=== PATIENT | male | born 1985 | race Caucasian/White ===

== ENCOUNTER 2021-09-03 19:13 | Emergency (ER) | payer MEDICARE, MEDICAID, SELFPAY | END 2021-09-04 17:03 | disposition left against medical advice (07) | PROVIDERS: Emergency Provider Emergency Medicine | DX: R10.9 Unspecified abdominal pain (principal) ==

== ENCOUNTER 2021-09-04 16:11 | Emergency (ER) | payer MEDICARE, MEDICAID, SELFPAY ==
[2021-09-04 17:03] VITALS: BP 127/77; PULSE 63; RESP 16; TEMP 36.3; O2SAT 97; BMI 33.9
== END 2021-09-04 20:04 | disposition left against medical advice (07) ==
LOC: HO.ED 19:58
PROVIDERS: Emergency Provider Emergency Medicine
DX: R11.10 Vomiting, unspecified (principal)
CPT/HCPCS: 99281

== ENCOUNTER 2022-08-21 02:57 | Emergency (ER) | payer MEDICARE, MEDICAID, SELFPAY ==
--- NOTE | 2022-08-21 02:59 | ECG_ITS ---
Test Reason : chest pain Blood Pressure : / mmHG Vent. Rate : 097 BPM Atrial Rate : 097 BPM P-R Int : 136 ms QRS Dur : 092 ms QT Int : 352 ms P-R-T Axes : 033 -09 037 degrees QTc Int : 447 ms Normal sinus rhythm Normal ECG No previous ECGs available Referred By: Generic ED Physician Electronically Signed By:OANH MORRIS MD
[2022-08-21 03:11] VITALS: BP 182/87; PULSE 117; RESP 16; TEMP 36.7; O2SAT 100; BMI 33.2
--- NOTE | 2022-08-21 03:34 | PC.NURSE ---
Pt seen walking out of ER. Charge nurse and MD aware.
== END 2022-08-21 03:39 | disposition left against medical advice (07) ==
PROVIDERS: Emergency Provider Emergency Medicine
DX: R07.89 Other chest pain (principal); F41.9 Anxiety disorder, unspecified
CPT/HCPCS: 93005; 99283

== ENCOUNTER 2023-04-14 18:37 | Emergency (ER) | payer MEDICARE, MEDICAID, SELFPAY ==
--- NOTE | ~2023-04-14 | XR_ITS ---
EXAMINATION: XR CHEST CLINICAL INFORMATION: Chest pain. COMPARISON: None available. TECHNIQUE: 2 views of the chest were obtained. FINDINGS: No lung volume and bilateral diffuse prominent interstitial lung markings are noted, may represent chronic changes. No evidence of any superimposed discrete focal airspace consolidation/pneumonia or pleural effusion or pneumothorax. The cardiomediastinal silhouette is within normal limit. The visualized upper abdomen is unremarkable. XR/XR chest 2V IMPRESSION: No radiographic evidence of acute cardiopulmonary disease. The etiology for chest pain is not evident on these images.
--- NOTE | 2023-04-14 18:38 | ECG_ITS ---
Test Reason : CHEST PAIN Blood Pressure : / mmHG Vent. Rate : 114 BPM Atrial Rate : 114 BPM P-R Int : 168 ms QRS Dur : 094 ms QT Int : 334 ms P-R-T Axes : 045 004 015 degrees QTc Int : 460 ms Sinus tachycardia Otherwise normal ECG When compared with ECG of 21-AUG-2022 02:58, No significant change was found Referred By: Kait Batista Electronically Signed By:NORMAN GARCIA
[2023-04-14 18:44] VITALS: BP 158/87; PULSE 111; RESP 18; TEMP 36.7; O2SAT 99; BMI 35.8
--- NOTE | 2023-04-14 18:48 | ED.CHESTPAIN ---
HPI - Chest Pain General Chief Complaint: Chest Pain Stated Complaint: chest pain,left arm numbness,palpatations Related Data Allergies Allergy/AdvReac Type Severity Reaction Status Date / Time haloperidol [From Haldol] Allergy Unknown Verified 08/21/22 03:10 [facility] Social History Social History Advance Directives: No Advance Directives Information Provided: No Physical Exam Vital Signs: Vital Signs: Last Vital Signs Temp 98.1 F 04/14/23 18:44 Pulse 111 H 04/14/23 18:44 Resp 18 04/14/23 18:44 BP 158/87 H 04/14/23 18:44 Pulse Ox 99 04/14/23 18:44 O2 Del Method Room Air 04/14/23 18:44 BMI result Body Mass Index 35.8 Course Course Course Narrative: RME: 37 yo M w/PMHx vertigo, HTN, insomnia, presenting to the ED c/o chest pain, nausea, SOB & anxiety w/ assoc LUE tingling x 20mins [employer]. Also reports ear ringing & acute on chronic dizziness (known vertigo). Took Xanax [employer] w/o relief. EKG, Labs, CXR, Viral testing ordered Full HPI, ROS and PE to be performed by primary ED provider. Discharge Plan Discharge Clinical Impression: Chest pain Patient Disposition: Left W/O Completing Treatment Discharge Date/Time: 04/15/23 00:58
--- NOTE | 2023-04-15 00:41 | PC.NURSE ---
Last call at 0030 pt not in waiting room after multiple calls.
--- NOTE | 2023-04-15 00:46 | MHC.EDTECH ---
At 1845 when the electrocardiogram was completed the patient had no orders for labs. I went out to bring the patient in to be drawn around 2029. I didn't see the patient and moved to the next patient on my worklist. The last time that I went to call the patient was just after 0000. The patient still was not in our waiting room. The patient stated that he was feeling anxious, that he knows his body and only came in, because he was advised to do so.
== END 2023-04-15 00:58 | disposition left against medical advice (07) ==
LOC: HO.ED 04-15 00:55
PROVIDERS: Emergency Provider Emergency Medicine
DX: R07.9 Chest pain, unspecified (principal)
CPT/HCPCS: 71046; 93005; 99283

== ENCOUNTER → 2023-04-14 18:38 | Outpatient (BNV) | payer MEDICARE, MEDICAID, SELFPAY | PROVIDERS: Emergency Provider Emergency Medicine; Visit Provider Internal Medicine | DX: R07.9 Chest pain, unspecified (principal) | CPT/HCPCS: 93010 ==

== ENCOUNTER 2023-11-04 13:23 | Inpatient (IN) | payer MEDICARE, MEDICAID, SELFPAY ==
--- NOTE | ~2023-11-04 | XR_ITS ---
EXAMINATION: XR CHEST CLINICAL INFORMATION: Chest pain COMPARISON: 04/14/2023 TECHNIQUE: Frontal view of the chest was obtained. FINDINGS: There is slight apical lordotic positioning on this anteroposterior chest radiograph. Lungs are well expanded and without acute abnormality. No consolidation, pleural effusion or pneumothorax. Cardiomediastinal silhouette has normal size and contour. Pulmonary vascular pattern is normal. The visualized bones are intact. XR/XR chest 1V IMPRESSION: No acute pulmonary disease compared to 04/14/2023.
--- NOTE | 2023-11-04 13:24 | ECG_ITS ---
Test Reason : cp Blood Pressure : / mmHG Vent. Rate : 094 BPM Atrial Rate : 000 BPM P-R Int : 000 ms QRS Dur : 088 ms QT Int : 330 ms P-R-T Axes : 000 -17 033 degrees QTc Int : 412 ms Poor data quality, interpretation may be adversely affected Atrial fibrillation Abnormal ECG When compared with ECG of 14-APR-2023 18:45, Atrial fibrillation has replaced Sinus rhythm Nonspecific T wave abnormality has replaced inverted T waves in Inferior leads Referred By: Kait Batista Electronically Signed By:OANH MORRIS MD
--- NOTE | 2023-11-04 13:26 | ED_ITS ---
HPI - Chest Pain General Chief Complaint: Chest Pain Stated Complaint: Chest pain, palpitations Time Seen by Provider: 11/04/23 14:43 Source: patient Mode of arrival: ambulatory History of Present Illness ED Provider: Dr Leiva HPI narrative: 38-year-old male with history of IVDA, endorses that he has relapsed, reports 3 days of palpitations, dizziness, chills but denies any measurable fevers, also has been feeling unwell. Related Data Allergies Allergy/AdvReac Type Severity Reaction Status Date / Time haloperidol [From Haldol] Allergy Unknown Verified 11/04/23 13:31 Review of Systems 2 Review of Systems: Pertinent positives and negatives as stated in HPI PMFSH Past Medical History Source: nursing notes reviewed Social History Social History Smoked in Last 30 Days: No Use of substances other than those prescribed or required for medical reasons: Yes Advance Directives: No Advance Directives Information Provided: Yes Physical Exam 2 Vital Signs: Vital Signs: Last Vital Signs Temp 97.8 F 11/04/23 16:00 Pulse 117 H 11/04/23 16:00 Resp 20 11/04/23 16:00 BP 149/94 H 11/04/23 16:00 Pulse Ox 95 11/04/23 16:00 O2 Del Method Room Air 11/04/23 16:00 BMI result Body Mass Index 37.3 VITAL SIGNS: Reviewed. GENERAL: Well developed, well nourished, in no acute distress. HEAD: Normocephalic/atraumatic EYES: PERRLA, EOMI EARS: Ext canals without abnormality NOSE: Nares patent bilateral OROPHARYNX: no oral lesions noted, posterior pharynx clear NECK: Supple, no adenopathy LUNGS: Normal breath sounds. No adventitious sounds or accessory muscle use. SpO2<95> CARDIOVASCULAR: IRR/IRR without noted murmurs, no JVD or lower extremity edema. ABDOMEN: Soft, non-tender, non-distended with bowel sounds. MUSCULOSKELETAL: No tenderness, deformities, or effusions noted on gross inspection. EXTREMITIES: No cyanosis, clubbing or edema. SKIN: Inspection of the skin reveals no rashes NEUROLOGIC: Alert and oriented x 4. Strength and sensation to light touch were grossly intact x 4. Course Course Course Narrative: This is a Rapid Medical Exam performed in triage by Kait Batista PA-C. Full HPI, ROS and PE to be performed by primary ED provider. 38 year-old M w/ PMHx HTN presenting to the ED c/o left sided CP w/LUE tingling & weakness. 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 Admits sees Cardiology in [place] Needs US guided IV/Labs PE: anxious, tachycardic, NAD Plan: EKG, labs, CXR, viral testing ordered Medications Administered Discontinued Medications Generic Name Dose Route Start Last Admin Trade Name Freq PRN Reason Stop Dose Admin Metoprolol Tartrate 5 mg 11/04/23 17:28 11/04/23 17:34 Metoprolol Tartrate 5 Mg/5 Ml Vial IVPUSH 11/04/23 17:29 5 mg ONCE ONE Administration Protocol Medical Decision Making Medical Decision Making [facility] Narrative: 1730: 38-year-old male with history and clinical presentation, DDX: Patient has new atrial fibrillation raising concerns given the chills and patient has persistent use of IVDA for possible underlying endocarditis, D-dimer is undetectable and lower clinical suspicion for PE given absence of hypoxia and blood pressure appears to be well-maintained. Patient was seen at previous hospital and has a known needle approximately 2 cm deep in the right forearm. Will start patient on 2 g of Rocephin after obtaining lactic acid and blood cultures, patient also received 5 mg of Lopressor. I reviewed all other investigations and hematologic indices are negative for leukocytosis/anemia/thrombocytopenia. Coagulation studies are within normal limits and D-dimer is undetectable. Chemistries indices are negative for YUKO/electrolyte derangements and suspect the slight transaminase elevation is secondary to underlying fatty liver as he has no reported abdominal discomfort. I sensitivity troponin is 3.4 and BNP is within normal limits as well as TSH is within normal limits. UDS is consistent with patient's report of continued use of drugs. Viral testing is negative for influenza/RSV/COVID-19. Chest x-ray is negative for infiltrate or venous congestion. EKG: Atrial fibrillation with RVR, HR-121, no STEMI, QRS/QTC is within normal limits. 1812: Dr. Evangelista is agreeable for admission. Differential Diagnosis Differential Diagnoses: The differential diagnosis associated with the presentation includes Please see the discussion above Admission/Observation Consideration of admission/observation: Escalation of care including admission/observation considered Please see the discussion above Consult Healthcare Provider Management of the patient was discussed with: Hospitalist Please see the discussion above Lab Data MDM Lab Attestation statement: I reviewed the patient's lab results. Please see the discussion above 11/04/23 16:44 11/04/23 16:43 Labs: Lab Results 11/04/23 11/04/23 11/04/23 Range/Units 15:34 16:43 16:44 WBC 7.6 (4.8-10.8) X10*3/uL RBC 5.10 (4.60-5.80) X10*6/uL Hgb 14.2 (14.0-18.0) g/dl Hct 42.5 (42.0-52.0) % MCV 83.3 (80.0-98.0) fL MCH 27.8 (27.0-33.0) pg MCHC 33.4 (31.0-36.0) g/dl RDW 13.7 (11.0-16.0) % Plt Count 193 (160-400) X10*3/uL MPV 10.7 (9.4-12.4) fL Immature Gran % (Auto) 0.4 (0.0-0.4) % Neut % (Auto) 77.6 H (45-73) % Lymph % (Auto) 15.1 L (20-40) % [place] % (Auto) 5.7 (2-11) % Eos % (Auto) 0.5 (0-4) % Baso % (Auto) 0.7 (0-2) % Lymph # (Auto) 1.1 L (1.2-4.9) X10*3/uL [place] # (Auto) 0.4 (0.1-1.2) X10*3/uL Eos # (Auto) 0.0 (0.0-0.4) X10*3/uL Baso # (Auto) 0.1 (0.0-0.2) X10*3/uL Abs Immat Gran (auto) 0.03 (0.00-0.03) X10*3/uL Absolute Neuts (auto) 5.9 (2.0-8.3) x10*3/uL Absolute Nucleated RBC 0.000 (0.0-0.012) X10*3/uL Nucleated RBC % (auto) 0.0 (0.0-0.2) /100WBC PT 12.3 (11.1-13.3) SEC INR 1.0 (0.9-1.1) D-Dimer High Sensitivty < 150 NG/ML Sodium 144 (135-145) mmol/L Potassium 4.5 (3.3-5.1) mmol/L Chloride 106 (96-108) mmol/L Carbon Dioxide 30 H (22-29) mmol/L Anion Gap 13 (12-20) BUN 10 (9-16) mg/dL Creatinine 0.97 (0.5-1.4) mg/dL Estim Creat Clear Calc 143.6 Estimated GFR > 60 Random Glucose 114 (60-115) mg/dL Calcium 10.0 (8.4-10.2) mg/dL Total Bilirubin 0.4 (0.0-1.0) mg/dL Direct Bilirubin 0.2 (0.0-0.5) mg/dL AST 38 H (5-37) U/L ALT 55 H (0-40) U/L Alkaline Phosphatase 74 (39-117) U/L Troponin I High Sens 3.4 (<3.5-35.0) ng/L B-Natriuretic Peptide < 10 (<100) pg/mL Total Protein 7.8 (6.5-8.0) g/dL Albumin 4.2 (3.5-5.0) g/dL TSH 0.64 (0.32-4.0) uIU/mL Urine Opiates Screen POSITIVE H (Not Detect) Ur Buprenorphine Scrn Not Detected (Not Detect) ng/mL Ur Oxycodone Screen Not Detected (Not Detect) ng/mL Urine Methadone Screen Not Detected (Not Detect) ng/mL Urine Fentanyl Screen POSITIVE H (Not Detect) Ur Barbiturates Screen Not Detected (Not Detect) Ur Phencyclidine Scrn Not Detected (Not Detect) Ur Amphetamines Screen Not Detected (Not Detect) U Benzodiazepines Scrn Not Detected (Not Detect) Urine Cocaine Screen Not Detected (Not Detect) U Marijuana (THC) Screen Not Detected (Not Detect) Influenza Type A (PCR) NEGATIVE (Negative) Influenza Type B (PCR) NEGATIVE (Negative) RSV RNA Qual (PCR) NEGATIVE (Negative) SARS-CoV-2 RNA (RT-PCR) NEGATIVE (Negative) Independent Interpretation I performed an independent interpretation of an: EKG Interpretation: Please see the discussion above Radiology Impression Discussion of test interpretation with radiology: I have reviewed the radiologist's reading. Radiologist Impression: Please see the discussion above Chronic Conditions Patient?s care impacted by: Other IVDA Social Determinants Patient?s care significantly limited by Social Determinants of Health including: Alcoholism and drug addiction in family Critical Care Time Critical Care Time Critical Care Time: Yes Total Critical Care Time: 45 Attestation: I personally attest to this time spent taking care of the patient. Discharge Plan Discharge Clinical Impression: New onset a-fib, Atrial fibrillation with RVR Patient Disposition: Admitted As Inpatient Print Language: Occitan
[2023-11-04 13:28] VITALS: BP 156/93; PULSE 125; RESP 16; TEMP 36.7; O2SAT 95; BMI 37.3
--- NOTE | 2023-11-04 14:26 | PC.NURSE ---
Patient refusing to be stuck for lab work and IV, providers aware he will need US line for labs. CC Anastasiia also aware.
--- NOTE | 2023-11-04 14:58 | PC.NURSE ---
Patient states he has a piece of metal embedded in his R arm , refusing labs/bp/iv on R side.
--- NOTE | 2023-11-04 14:58 | PC.NURSE ---
Informed by provider that they are unavailable to insert IV and ICU needs to be contacted for IV. Clinicial coordinator Anastasiia and charge Elizabeth made aware of provider's situation, Anastasiia to get provider for IV.
--- NOTE | 2023-11-04 15:14 | PC.NURSE ---
ED provider Brunilda unable to get US IV line. Patient now willing to be stuck with butterfly for lab work, if IV needed patient requests medication for anxiety beforehand.
--- NOTE | 2023-11-04 15:31 | PC.NURSE ---
SUPRIYA Shultz to attempt to draw patient
--- NOTE | 2023-11-04 15:45 | PC.NURSE ---
EDT unable to get labs w/ a butterfly. Patient now no longer wants to be stuck with a butterfly needle. ICU contacted to see if additional US trained provider can come and attempt to place IV/get labs.
[2023-11-04 15:52] LABS: Amphetamine Screen Urine Not Detected (Not Detect); Barbiturates, Urine Not Detected (Not Detect); Benzodiazepines Screen Urine Not Detected (Not Detect); Buprenorphine Scr Not Detected (Not Detect); Cannabinoid Screen Urine Not Detected (Not Detect); Cocaine Screen Urine Not Detected (Not Detect); Fentanyl, urine POSITIVE (Not Detect); Methadone Screen, Urine Not Detected (Not Detect); Opiate Screen Urine POSITIVE (Not Detect); Oxycodone Screen Urine Not Detected (Not Detect); Phencyclidine Screen Urine Not Detected (Not Detect)
--- NOTE | 2023-11-04 15:54 | MHC.EDTECH ---
Rn said to wait on ortho vitals due to pt's heart rate spiking while urinating
[2023-11-04 16:00] VITALS: BP 149/94; PULSE 117; RESP 20; TEMP 36.6; O2SAT 95
--- NOTE | 2023-11-04 16:09 | PC.NURSE ---
Patient increasingly anxious about his current medical condition, wants to sit in wheelchair. Due to flucuating HR patient unable to safely sit in wheelchair at this time, continues to refuse to change in hospital attire, informed patient additional provider will be coming in to acquire labs.
[2023-11-04 16:17] LABS: Influenza A PCR NEGATIVE (Negative); Influenza B PCR NEGATIVE (Negative); Resp Syncy Virus RNA Qual PCR NEGATIVE (Negative); SARS COV2 PCR INHOUSE NEGATIVE (Negative)
[2023-11-04 16:50] LABS: MANUAL DIFF FLAG NO
[2023-11-04 16:52] LABS: Basophils Absolute Auto 0.1 X10*3/uL (0.0-0.2); Basophils Percent Auto 0.7 % (0-2); Eosinophils Percent Auto 0.5 % (0-4); Hematocrit 42.5 % (42.0-52.0); Hemoglobin 14.2 g/dl (14.0-18.0); Imm Gran Abs Auto 0.03 X10*3/uL (0.00-0.03); Imm Gran Pct Auto 0.4 % (0.0-0.4); Lymphocytes Absolute Auto 1.1 X10*3/uL (1.2-4.9); Lymphocytes Percent Auto 15.1 % (20-40); Mean Corpuscular HGB Conc 33.4 g/dl (31.0-36.0); Mean Corpuscular Hemoglobin 27.8 pg (27.0-33.0); Mean Corpuscular Volume 83.3 fL (80.0-98.0); Mean Platelet Volume 10.7 fL (9.4-12.4); Monocytes Absolute Auto 0.4 X10*3/uL (0.1-1.2); Monocytes Percent Auto 5.7 % (2-11); Neutrophils Absolute Auto 5.9 x10*3/uL (2.0-8.3); Neutrophils Percent Auto 77.6 % (45-73); Platelet Count 193 X10*3/uL (160-400); Red Cell Distribution Width 13.7 % (11.0-16.0); White Blood Count 7.6 X10*3/uL (4.8-10.8)
[2023-11-04 17:06] LABS: Alanine Aminotransferase 55 U/L (0-40); Albumin Level 4.2 g/dL (3.5-5.0); Alkaline Phosphatase 74 U/L (39-117); Anion Gap 13 (12-20); Aspartate Amino Transferase 38 U/L (5-37); Bilirubin Direct 0.2 mg/dL (0.0-0.5); Bilirubin Total 0.4 mg/dL (0.0-1.0); Blood Urea Nitrogen 10 mg/dL (9-16); Carbon Dioxide 30 mmol/L (22-29); Chloride 106 mmol/L (96-108); Creatinine Clr Calc Pharmacy 143.6; Estimated Glomerular Filt Rate > 60; Glucose Random 114 mg/dL (60-115); Potassium 4.5 mmol/L (3.3-5.1); Sodium 144 mmol/L (135-145); Total Protein 7.8 g/dL (6.5-8.0)
[2023-11-04 17:07] LABS: Prothrombin Time 12.3 SEC (11.1-13.3)
--- NOTE | 2023-11-04 17:08 | ECG_ITS ---
Test Reason : TACHYCARDIA Blood Pressure : / mmHG Vent. Rate : 121 BPM Atrial Rate : 000 BPM P-R Int : 000 ms QRS Dur : 086 ms QT Int : 264 ms P-R-T Axes : 000 000 014 degrees QTc Int : 374 ms Atrial fibrillation with rapid ventricular response Abnormal ECG When compared with ECG of 04-NOV-2023 13:34, No significant change was found Referred By: Dennise Leiva Electronically Signed By:OANH MORRIS MD
[2023-11-04 17:12] LABS: Troponin-I High Sensitivity 3.4 ng/L (<3.5-35.0)
[2023-11-04 17:16] LABS: B Type Natriuretic Peptide < 10 pg/mL (<100)
[2023-11-04 17:27] LABS: TSH reflex Free T4 0.64 uIU/mL (0.32-4.0)
[2023-11-04] MEDS: Metoprolol Tartrate 5 MG/5 ML VIAL IVPUSH (17:34)
--- NOTE | 2023-11-04 17:37 | PC.NURSE ---
Pt medicated per JUN by this float RN, HR decreased to 101-115 MD notified. Awaiting improvement in symptoms and possible admission.
[2023-11-04 17:51] LABS: D Dimer High Sensitivity < 150 NG/ML
[2023-11-04] MEDS: LORazepam 2 MG/ML VIAL 0.5 MG IVPUSH (18:20)
--- NOTE | 2023-11-04 18:42 | P.HPHOSP_ITS ---
History of Present Illness Date of Service: 11/04/23 Chief Complaint: Palpitations 38-year-old gentleman with past medical history significant for hypertension, vertigo and insomnia presented to [facility] with 3-4 days' history of palpitations associated with lightheadedness, chills feeling cold and hot, no fevers and worsening insomnia of 3-4 days' duration, having strange dreams, also complaining of right forearm pain since October 31, patient was recently evaluated at [facility] on November 01 for follow-up on broken needle in right forearm, according to patient history he was injecting self for cyclic vomiting syndrome and needle broke off x-ray showed tip of broken needle within the medial proximal soft tissue of the forearm, point of care ultrasound of the area showed needle at depth of 1-2 cm given the depth it was decided to refer patient to general surgery for possible fluoroscopic guided removal, patient was scheduled for procedure today at [facility] but due to palpitations came to [facility] ED, here 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 while using material in a syringe to fill in crack he slid on floor and knocked down the needle and acquired puncture wound, in ED noted to be in new onset atrial fibrillation with rapid ventricular rate of 121 patient treated with IV Lopressor 5 mg, IV ceftriaxone for possible infection, question endocarditis and Ativan 0.5 mg, ventricular rate improved patient remains in atrial fibrillation, he denies history of alcohol use, denies family history of atrial fibrillation, TSH 0.64, troponin 3.4, BNP of 10, chest x-ray unremarkable urine toxicology positive for fentanyl and opiates, he admits of taking oxycodone and IV heroin last use 4 days ago, denies withdrawal symptoms. Review of Systems 2 Review of Systems: General no headache, no dizziness no fever chills. CVS no chest pain, palpitation. Respiratory no cough no sob Gastrointestinal no nausea no vomiting, intermittent abdominal pain No urinary symptoms of urgency frequency Skin no new rash has history of psoriasis not worsening Musculoskeletal right forearm pain PMFSH Pertinent family history: Mother is alive and father has diabetes mellitus, grandfather had ID and pacemaker placement in early 60s Social History Household Members: Spouse Housing: House Do you presently have visiting nurse or other home services: No Patient Tobacco Use Status: Never used Tobacco Smoked in Last 30 Days: No e-Cigarette/Vaping Use: Never Used Patient Interested in Nicotine Replacement: No Patient Given Instructions on How to Stop Smoking: No Second Hand Smoke Exposure: No Use of substances other than those prescribed or required for medical reasons: Yes Substance Use Type: Opiates Substance Use Frequency: Chronic Longstanding Last Used Substance: Days (ago) Currently Displaying Signs/Symptoms of Drug Intoxication Withdrawal: No Any prior treatment program specific to substance use: No Have you been hit, kicked, punched, or otherwise hurt by someone within the past year? If so, by whom?: No Do you feel safe in your current relationship?: Yes Is there a partner from a previous relationship who is making you feel unsafe now?: No Are you made to feel afraid or neglected: No Advance Directives: No Advance Directives Information Provided: Yes Advance Directives on File: No Do you have a plan to hurt others: No Plan Recently lost weight without trying: No How much weight loss: Not applicable Eating poorly because of decreased appetite: No Nutrition screen score: 0 Nutrition Risks: No Nutritional Risk Poor oral hygiene: No service: No Meds Allergies Allergy/AdvReac Type Severity Reaction Status Date / Time haloperidol [From Haldol] Allergy Unknown Verified 11/04/23 13:31 Physical Exam 2 Vital Signs and Narrative: Vital Signs: Last Vital Signs Temp 97.8 F 11/04/23 16:00 Pulse 117 H 11/04/23 16:00 Resp 20 11/04/23 16:00 BP 149/94 H 11/04/23 16:00 Pulse Ox 95 11/04/23 16:00 O2 Del Method Room Air 11/04/23 16:00 BMI result Body Mass Index 37.3 Const: Other: General awake alert x3, resting comfortably in no acute distress. Neck supple no JVD. CVS irregular rate rhythm, Respiratory lungs clear to auscultation, no respiratory distress, no wheeze, no rhonchi. Gastrointestinal abdomen soft, non tender, bowel sounds audible, no guarding , no rigidity. Extremities no edema. Neuro non focal , moving all 4 extremity speech clear. Skin right mid forearm tenderness at site of stuck needle, no surrounding redness, no induration, no drainage no open wounds Psych appropriate affect Results Labs 11/04/23 16:44 11/05/23 10:30 Labs: Laboratory Results - last 24 hr 11/04/23 11/04/23 11/04/23 15:34 16:43 16:44 MCV 83.3 MCH 27.8 MCHC 33.4 RDW 13.7 Plt Count 193 MPV 10.7 Immature Gran % (Auto) 0.4 Neut % (Auto) 77.6 H Lymph % (Auto) 15.[address] [place] % (Auto) 5.7 Eos % (Auto) 0.5 Baso % (Auto) 0.7 Lymph # (Auto) 1.[address] [place] [place] # (Auto) 0.4 Eos # (Auto) 0.0 Baso # (Auto) 0.1 Abs Immat Gran (auto) 0.03 Absolute Neuts (auto) 5.9 Absolute Nucleated RBC 0.000 Nucleated RBC % (auto) 0.0 PT 12.3 INR 1.0 D-Dimer High Sensitivty < 150 Anion Gap 13 Estim Creat Clear Calc 143.6 Estimated GFR > 60 Random Glucose 114 Calcium 10.0 Total Bilirubin 0.4 Direct Bilirubin 0.2 AST 38 H ALT 55 H Alkaline Phosphatase 74 Troponin I High Sens 3.4 B-Natriuretic Peptide < 10 Total Protein 7.8 Albumin 4.2 TSH 0.64 Urine Opiates Screen POSITIVE H Ur Buprenorphine Scrn Not Detected Ur Oxycodone Screen Not Detected Urine Methadone Screen Not Detected Urine Fentanyl Screen POSITIVE H Ur Barbiturates Screen Not Detected Ur Phencyclidine Scrn Not Detected Ur Amphetamines Screen Not Detected U Benzodiazepines Scrn Not Detected Urine Cocaine Screen Not Detected U Marijuana (THC) Screen Not Detected Influenza Type A (PCR) NEGATIVE Influenza Type B (PCR) NEGATIVE RSV RNA Qual (PCR) NEGATIVE SARS-CoV-2 RNA (RT-PCR) NEGATIVE Imaging Radiologist's Impressions: Impressions Chest X-Ray 11/04/23 14:10 IMPRESSION: No acute pulmonary disease compared to 04/14/2023. Assessment and Plan (1) Foreign body in right forearm: Qualifiers: Qualified Code(s): S50.851A - Superficial foreign body of right forearm, initial encounter Status: Acute (2) New onset a-fib: Status: Acute Plan 38-year-old gentleman with history of opiate use disorder, history of hypertension, vertigo history of COVID 2 years ago post COVID noted to have hypertension and weakness currently unemployed presented to [facility] due to symptoms of palpitations and diagnosed to have AFib with RVR patient also has broken needle and right forearm was supposed to be removed at [facility] but came to [facility] ED for palpitations. New onset atrial fibrillation with RVR Admit to telemetry Metoprolol 25 mg b.i.d. obtain echocardiogram No history of alcohol use, normal TSH Cardiology consult History of hypertension not on antihypertensive medication since intolerant of multiple antihypertensive medications. Broken needle in right forearm X-ray from [facility] showed tip of broken needle within the medial proximal soft tissue of the forearm No evidence of cellulitis, no fevers, no chills Obtain surgical consult Opiate use disorder IV drug use/due to chills will obtain blood cultures x2, empiric IV antibiotics Addiction medicine consult History of panic attack on Xanax Class 2 obesity recommend low-calorie diet. DVT prophylaxis Lovenox In my clinical judgment patient will require 2 night inpatient hospitalization for further treatment and evaluation for AFib with RVR as well as for removal of broken needle and right forearm requiring expert consultation. Quality Stroke Does the patient have a stroke diagnosis?: No VTE Prior VTE?: No VTE Risk Level:: Medical - moderate - high VTE Device Contraindication: N/A - Device Ordered VTE Drug Contraindication: Treatment Not Indicated
[2023-11-04 19:18] LABS: Lactic Acid 1.4 mmol/L (0.5-2.0)
[2023-11-04] MEDS: cefTRIAXone sodium 2 GM in 0.9 % Sodium Chloride 50 ML IV (19:30)
[2023-11-04] MEDS: Enoxaparin Sodium 40 MG/0.4 ML SYRINGE SUBCUT (19:30)
--- NOTE | 2023-11-04 19:39 | PHA.MEDREC ---
Pharmacy Consult ? Medication Reconciliation Pharmacy has completed the medication reconciliation. Spoke to patient to confirm med list. Patient states the only medication he takes is Xanax 1 mg he says he takes 1/2 tablet bid or 1/3 tablet tid. I asked where he fill this medication and he states he fills at [facility] in [place]. So, I called [facility] to confirm. [facility] confirmed last fill date was 11-28-22 for alprazolam 1 mg tid for 3 days QT 10. Left off med rec and informed the
[2023-11-04] MEDS: Metoprolol Tartrate 25 MG TABLET PO (20:29)
[2023-11-04] MEDS: vancomycin/NS 2,000 MG/500 ML PLAST..BAG 250 MG IV (20:29)
[2023-11-04] MEDS: ALPRAZolam 0.5 MG TABLET PO (20:30)
--- NOTE | 2023-11-04 21:17 | PHA.PROG ---
Admission Date/Time: November 04, 2023 18:38 Indication: SKIN Weight in k.738 kg Adjusted body weight in Kg: [place] body weight in Kg: Obesity Dosing Indication % IBW: Serum Creatinine - Last 168 Hours 11/04/23 16:43 Creatinine 0.97 Estimated CrCl and GFR - Last 168 Hours 11/04/23 16:43 Estim Creat Clear Calc 143.6 Estimated GFR > 60 Vancomycin Loading Dose: 2000 MG Current Vancomycin Dosing Regimen: 1250 MG Q12H Vancomycin Monitoring using AUC goal of 400 - 600 range with trough as surrogate marker: [id number] TROUGH=14.8 Date and Time for next Vancomycin Level to be drawn: 11/06/2023 @0600 Pharmacist Comments on Vancomycin Plan: Vancomycin dosing will take advantage of [employer] as a clinical decision support tool that uses Bayesian modeling to calculate individual patient's pharmacokinetic parameters and forecast the patient's drug concentration time course with the target goal AUC 24 range of 400 - 600 mg/L/hr.
[2023-11-04] MEDS: Acetaminophen 325 MG TABLET 650 MG PO (22:32)
[2023-11-04] MEDS: diphenhydrAMINE HCL 50 MG/ML VIAL 25 MG IVPUSH (22:55)
[2023-11-04 23:36] LABS: Appearance Urine Clear; Color Urine Yellow; Glucose Urine UA Negative (Negative); Leukocyte Esterase Urine Trace (Negative); Nitrite Urine Negative (Negative); PH 6.5 (5.0-9.0); Specific Gravity - Urine 1.025 (1.005-1.025); UMIC TRIGGER UACC YES; Urine Blood Negative (Negative); Urine Ketones Trace mg/dL (Negative); Urine Protein Trace mg/dL (Neg-Trace)
[2023-11-05] VITALS: BP 111/57; PULSE 70; RESP 16; TEMP 36.2; O2SAT 98
[2023-11-05] LABS: Bacteria Urine None Seen (None Seen); Hyaline Casts Urine 0-2 /LPF (0-2); RBC Urine 0-2 /HPF (0-2); WBC Urine 0-5 /HPF (0-5)
[2023-11-05] MEDS: 0.9 % Sodium Chloride Flush 3 ML SYRINGE IVFLUSH (01:04)
[2023-11-05 06:50] VITALS: BMI 37.3
--- NOTE | 2023-11-05 07:00 | CA_ITS ---
Transthoracic Echocardiogram Patient (Last, First, Middle): Ignacio Riley, Gender: Male Date of : 1985 Age: 38 Procedure Date: 11/05/2023 Procedure Type: Transthoracic Echocardiogram Location: [facility] Height: 182.88 cm Weight: 124.29 kg BSA: 2.44 m2 Heart Rate: 71 bpm BP: 111 / 57 mmHg Child Protective Services Specialist: SB Referring MD: Verenice Evangelista MD Symptoms: atrial fib Study Quality: Adequate w contrast ECG Rhythm: Sinus Conclusions: - 1. Technically limited study due to body habitus 2. Vegetation can not be entirely ruled out on this study 3. Normal LV ejection fraction of 60 65% with normal diastolic filling pattern 4. Cardiac valvular Doppler is within normal limits Findings Procedure Information Contrast agent, definity, is being given per protocol without apparent complications. The quality of the study was technically difficult. The study quality is limited by patients body habitus. Left Ventricle Normal left ventricular size, thickness, and systolic function. The visually estimated ejection fraction is between 60-65%. Spectral Doppler is indicative of a normal filling pattern. Right Ventricle The right ventricle was not well visualized. Atria The left atrium was not well visualized. Interatrial shunt cannot be excluded. The right atrium was not well visualized. Aortic Valve The aortic valve was not well visualized. There is no aortic valve stenosis. There is no aortic valve regurgitation. Mitral Valve The mitral valve was not well visualized. There is no mitral valve regurgitation. There is no mitral valve stenosis. Pulmonic Valve The pulmonic valve was not well visualized. Tricuspid Valve The tricuspid valve was not well visualized. Tricuspid regurgitation envelope is inadequate for calculation of right ventricular systolic pressure. Normal right atrial pressure. Great Vessels The aorta was not well visualized. The pulmonary artery was not well visualized. Venous The inferior vena cava is normal in size and collapses greater than 50% with inspiration. Pericardium/Pleural The pericardium was not well visualized. Prior Study Comparison No prior study available for comparison. Measurements 2D Linear Measurements IVSd: 1.11 0.6-0.9/0.6-1.0 cm LVIDd: 4.46 3.9-5.3/4.2-5.9 cm LVIDd Index: 1.83 2.4-3.2/2.2-3.1 cm/m2 LVIDs: 3.36 2.0-3.6 cm LA Diam: 4.00 2.7-3.8/3.0-4.0 cm LAIDs Index: 1.64 1.5-2.3 cm/m2 LVOT Diam: 2.50 3.0+(-)1.3 cm 2D Systolic Function EF 4C: 59.90 >55% EF 2C: 67.00 >55% EF BiP: 63.30 >55% Mitral Valve MV Pk E: 0.68 MV PK A: 0.53 E/A: 1.30 E'Lateral: 11.50 E'Medial: 10.90 E/E' Med: 6.20 E/E' Lat: 5.90 Aortic Valve AoV Pk Tim[place]o: 1.23 AoV Pk Grad: 6.00 HEMANT: 4.36 LVOT LVOT Pk [place]: 1.11 LVOT Mn [place]: 0.69 LVOT VTI: 0.23 LVOT Pk Grad: 5.00 LVOT Mn Grad: 2.00 LVOT Diam: 2.50 LVOT Area: 4.91 Diastolic Function MV Pk E: 0.68 MV Pk A: 0.53 E/A: 1.30 E'Medial: 10.90 E/E' Med: 6.20 E' Laterial: 11.50 E/E' Lat: 5.90 Right Ventricle TAPSE (mm): 18.80 Tricuspid Valve RA Press: 15.00 Great Vessels Aorta Sinus of Valsalva: 3.40 2.0-3.5 cm Ao Asc: 3.20 2.1-3.4 cm Pulmonary Veins Pulm Vein S/D 1.50 Pulmonary Valve PV Pk Tim[place]o: 0.91 Peak PV Grad: 3.00 Updated in Other Vendor System with Status of Final Celestino Perkins MD electronically signed on 11/05/2023 1:42:20 PM with status of Final
[2023-11-05] MEDS: ondansetron HCL 4 MG/2 ML VIAL IVPUSH (07:32)
[2023-11-05 07:55] VITALS: BP 123/57; PULSE 76; RESP 20; TEMP 37; O2SAT 99
--- NOTE | 2023-11-05 08:43 | PM.CNGS ---
History of Present Illness Consult details Consult date: 11/05/23 Requesting physician: Verenice Evangelista Narrative: 38-year-old gentleman with past medical history significant for hypertension, vertigo and insomnia presented to the ED with 3-4 day history of palpitations associated with lightheadedness, chills. He was found to be new onset atrial fibrillation with rapid ventricular rate. He was admitted to the hospitalist service for further treatment of the a fib with RVR, question of endocarditis. At presentation he c/o right forearm pain for a few days following injecting self for cyclic vomiting syndrome and needle broke off. He was evaluated for this at [facility] and according to the patient an x-ray showed foreign body within the medial proximal soft tissue of the forearm. He was planned for fluoroscopic guided removal patient yesterday at [facility] but due to palpitations came to [place] ED. General surgery was consulted for the forearm FB. Review of Systems Constitutional: Constitutional: Denies fever(s) ENT: Denies dizziness Cardiovascular: Cardiovascular: Denies chest pain, Reports palpitations and Denies dyspnea Respiratory: Respiratory: Denies dyspnea Gastrointestinal: Gastrointestinal: Denies nausea and Denies vomiting Integumentary/Breasts: Skin/Breast: Denies erythema and Denies rash Neurologic: Denies dizziness Endocrine: Endocrine: Reports palpitations PMFSH Social History Social History Household Members: Spouse Housing: House Do you presently have visiting nurse or other home services: No Patient Tobacco Use Status: Never used Tobacco Smoked in Last 30 Days: No e-Cigarette/Vaping Use: Never Used Patient Interested in Nicotine Replacement: No Patient Given Instructions on How to Stop Smoking: No Second Hand Smoke Exposure: No Use of substances other than those prescribed or required for medical reasons: Yes Substance Use Type: Opiates Substance Use Frequency: Chronic Longstanding Last Used Substance: Days (ago) Currently Displaying Signs/Symptoms of Drug Intoxication Withdrawal: No Any prior treatment program specific to substance use: No Have you been hit, kicked, punched, or otherwise hurt by someone within the past year? If so, by whom?: No Do you feel safe in your current relationship?: Yes Is there a partner from a previous relationship who is making you feel unsafe now?: No Are you made to feel afraid or neglected: No Advance Directives: No Advance Directives Information Provided: Yes Advance Directives on File: No Do you have a plan to hurt others: No Plan Recently lost weight without trying: No How much weight loss: Not applicable Eating poorly because of decreased appetite: No Nutrition screen score: 0 Nutrition Risks: No Nutritional Risk Poor oral hygiene: No Meds Allergies Allergy/AdvReac Type Severity Reaction Status Date / Time haloperidol [From Haldol] Allergy Unknown Verified 11/04/23 13:31 Active Medications: Current Medications Acetaminophen (Acetaminophen 325 Mg Tablet) 650 mg PO Q6H PRN PRN Reason: Pain, Mild (Pain Scale 1-3), fever or headache Last Admin: 11/04/23 22:32 Dose: 650 mg Al Hydroxide/Mg Hydroxide (Magnesium Hydrox/Alum Hydrox 30 Ml Oral.Susp) 30 ml PO Q4H PRN PRN Reason: Heartburn Benzonatate (Benzonatate 100 Mg Capsule) 100 mg PO TID PRN PRN Reason: Cough Calcium Carbonate (Calcium Carbonate 750 Mg Tab.Chew) 750 mg PO Q4H PRN PRN Reason: Heartburn Enoxaparin Sodium (Enoxaparin Sodium 40 Mg/0.4 Ml Syringe) 40 mg SUBCUT Q24H [facility] Last Admin: 11/04/23 19:30 Dose: 40 mg Vancomycin HCl 1,250 mg/ (Sodium Chloride) 250 mls @ 166.667 mls/hr IV Q12H [facility] Magnesium Hydroxide (Milk Of Magnesia 30 Ml Oral.Susp) 30 ml PO DAILY PRN PRN Reason: Constipation Melatonin (Melatonin 3 Mg Tablet) 6 mg PO BEDTIME PRN PRN Reason: Insomnia Metoprolol Tartrate (Metoprolol Tartrate 25 Mg Tablet) 25 mg PO BID [facility]; Protocol Last Admin: 11/05/23 07:59 Dose: Not Given Ondansetron HCl (Ondansetron Hcl 4 Mg/2 Ml Vial) 4 mg IVPUSH Q8H PRN PRN Reason: Nausea and Vomiting Last Admin: 11/05/23 07:32 Dose: 4 mg Pharmacy Consult (Consult Rx Vancomycin Dosing) 1 each MISCELLANE DAILY PRN PRN Reason: Consult order Sodium Chloride (0.9 % Sodium Chloride Flush 3 Ml Syringe) 3 ml IVFLUSH QSHIFT [facility] Last Admin: 11/05/23 07:59 Dose: Not Given Temazepam (Temazepam 15 Mg Capsule) 15 mg PO BEDTIME PRN PRN Reason: Insomnia Home Medications ?Medication ?Instructions ?Recorded ?Confirmed ?Last Taken ?Type No Known Home Meds 11/04/23 11/04/23 Unknown History Physical Exam Vital Signs: Vital Signs: Last Vital Signs Temp 98.6 F 11/05/23 07:55 Pulse 76 11/05/23 07:55 Resp 20 11/05/23 07:55 BP 123/57 L 11/05/23 07:55 Pulse Ox 99 11/05/23 07:55 O2 Del Method Room Air 11/05/23 07:55 BMI result Body Mass Index 37.3 Const: General: no acute distress and alert Nutritional Appearance: well nourished Orientation/consciousness: patient oriented x3 Resp: Effort & Inspection: normal respiratory effort Neuro: General: patient oriented x3 and moves all extremities Extrem: Other: right medial midforearm with longitudinal tract mel, no surrounding erythema or edema Psych: Affect: Other affect and mood findings present (flat affect) Results Labs 11/04/23 16:44 11/04/23 16:43 Labs: Abnormal lab results 11/04/23 11/04/23 11/04/23 Range/Units 15:34 16:43 16:44 Neut % (Auto) 77.6 H (45-73) % Lymph % (Auto) 15.1 L (20-40) % Lymph # (Auto) 1.1 L (1.2-4.9) X10*3/uL Carbon Dioxide 30 H (22-29) mmol/L AST 38 H (5-37) U/L ALT 55 H (0-40) U/L Ur Leukocyte Esterase (Negative) Urine Opiates Screen POSITIVE H (Not Detect) Urine Fentanyl Screen POSITIVE H (Not Detect) 11/04/23 Range/Units 23:00 Neut % (Auto) (45-73) % Lymph % (Auto) (20-40) % Lymph # (Auto) (1.2-4.9) X10*3/uL Carbon Dioxide (22-29) mmol/L AST (5-37) U/L ALT (0-40) U/L Ur Leukocyte Esterase Trace H (Negative) Urine Opiates Screen (Not Detect) Urine Fentanyl Screen (Not Detect) Short CBC 11/04/23 Range/Units 16:44 WBC 7.6 (4.8-10.8) X10*3/uL Hgb 14.2 (14.0-18.0) g/dl Hct 42.5 (42.0-52.0) % Plt Count 193 (160-400) X10*3/uL BMP 11/04/23 16:43 Sodium 144 Potassium 4.5 Chloride 106 Carbon Dioxide 30 H BUN 10 Creatinine 0.97 Calcium 10.0 Liver Function 11/04/23 Range/Units 16:43 Total Bilirubin 0.4 (0.0-1.0) mg/dL Direct Bilirubin 0.2 (0.0-0.5) mg/dL AST 38 H (5-37) U/L ALT 55 H (0-40) U/L Alkaline Phosphatase 74 (39-117) U/L Albumin 4.2 (3.5-5.0) g/dL Urine 11/04/23 Range/Units 23:00 Urine Color Yellow Urine Appearance Clear Urine pH 6.5 (5.0-9.0) Ur Specific [place] 1.025 (1.005-1.025) Urine Protein Trace (Neg-Trace) mg/dL Urine Glucose (UA) Negative (Negative) mg/dL All other labs normal. Assessment and Plan (1) Foreign body in right forearm: Status: Acute (2) Atrial fibrillation with RVR: Status: Acute Plan 38-year-old gentleman admitted with atrial fibrillation with rapid ventricular rate, question of endocarditis. General surgery was consulted for reported right forearm foreign body. No evidence of surrounding cellulitis. Given acute medical issues, would hold off on surgical intervention for foreign body removal at this time. Can f/u in gen surgery office or continue f/u at [facility] at discharge for outpatient elective procedure. Procedures Date of Service Date of Service: 11/05/23
[2023-11-05 11:35] LABS: Creatinine Clr Calc Pharmacy 148.1; Estimated Glomerular Filt Rate > 60
--- NOTE | 2023-11-05 11:43 | MHC.CM.PN ---
IMM 11/04. Pt lives at home with his who will transport him home at discharge. New HCP completed with pt, now on file. Pt does not have a PCP, local list has already been given to the pt.
[2023-11-05 12:00] VITALS: BP 133/65; PULSE 69; RESP 20; TEMP 36.8; O2SAT 97
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
--- NOTE | 2023-11-05 13:46 | P.CONCA_ITS ---
History of Present Illness History of Present Illness Date of Service: 11/05/23 Requesting physician: Verenice Evangelista Consult reason: atrial fibrillation Chief complaint: New onset atrial fibrillation with RVR Narrative: I was requested to see Ignacio in cardiology consultation today for atrial fibrillation. He is a 38-year-old male who has been recently evaluated by Cardiology in [place] for hypertension. He said he has been tried on multiple medications current propranolol and metoprolol which she had severe side effects. Propranolol had to be discontinued. He is currently not on medications. He has been diagnose with obstructive sleep apnea recently but has not had his machine delivered to him as yet. Patient's significant other was accompanying the patient. Patient came to the hospital with symptoms of palpitations that started 10 beats ago. Came to the hospital was noted to be in atrial fibrillation. Patient remained in atrial fibrillation and eventually converted sinus rhythm. Cardiology consult was sought for management of atrial fibrillation. Patient also has reported weakness and chills at home. He has a foreign body with a broken needle in his right elbow. Has been seen by surgery and has been advised to follow-up as outpatient for the same. Reportedly site is not infected. He has been admitted for rule out of endocarditis. He does admit to [place] IV drug abuse relapse. Review of Systems 2 Constitutional: Constitutional: Reports chills, Denies fever(s) and Reports weakness Eyes: Eyes: Reports no additional eye complaints Cardiovascular: Cardiovascular: Denies chest pain, Reports lightheadedness, Reports palpitations and Denies dyspnea Respiratory: Respiratory: Denies dyspnea Gastrointestinal: Gastrointestinal: Reports no additional gastrointestinal complaints Neurologic: Reports system reviewed and no additional complaints, except as documented and Reports weakness Endocrine: Endocrine: Reports palpitations Allergic/Immunologic: Allergic/Immunologic: Reports no additional allergic/immunologic complaints [facility] Social History Social History Household Members: Spouse Housing: House Do you presently have visiting nurse or other home services: No Patient Tobacco Use Status: Never used Tobacco Smoked in Last 30 Days: No e-Cigarette/Vaping Use: Never Used Patient Interested in Nicotine Replacement: No Patient Given Instructions on How to Stop Smoking: No Second Hand Smoke Exposure: No Use of substances other than those prescribed or required for medical reasons: Yes Substance Use Type: Opiates Substance Use Frequency: Chronic Longstanding Last Used Substance: Days (ago) Currently Displaying Signs/Symptoms of Drug Intoxication Withdrawal: No Any prior treatment program specific to substance use: No Have you been hit, kicked, punched, or otherwise hurt by someone within the past year? If so, by whom?: No Do you feel safe in your current relationship?: Yes Is there a partner from a previous relationship who is making you feel unsafe now?: No Are you made to feel afraid or neglected: No Advance Directives: No Advance Directives Information Provided: Yes Advance Directives on File: No Do you have a plan to hurt others: No Plan Recently lost weight without trying: No How much weight loss: Not applicable Eating poorly because of decreased appetite: No Nutrition screen score: 0 Nutrition Risks: No Nutritional Risk Poor oral hygiene: No service: No Meds Allergies Allergy/AdvReac Type Severity Reaction Status Date / Time haloperidol [From Haldol] Allergy Unknown Verified 11/04/23 13:31 Active Medications: Current Medications Acetaminophen (Acetaminophen 325 Mg Tablet) 650 mg PO Q6H PRN PRN Reason: Pain, Mild (Pain Scale 1-3), fever or headache Last Admin: 11/04/23 22:32 Dose: 650 mg Al Hydroxide/Mg Hydroxide (Magnesium Hydrox/Alum Hydrox 30 Ml Oral.Susp) 30 ml PO Q4H PRN PRN Reason: Heartburn Alprazolam (Alprazolam 0.25 Mg Tablet) 0.25 mg PO TID PRN PRN Reason: anxiety/restlessness Benzonatate (Benzonatate 100 Mg Capsule) 100 mg PO TID PRN PRN Reason: Cough Calcium Carbonate (Calcium Carbonate 750 Mg Tab.Chew) 750 mg PO Q4H PRN PRN Reason: Heartburn Enoxaparin Sodium (Enoxaparin Sodium 40 Mg/0.4 Ml Syringe) 40 mg SUBCUT Q24H [facility] Last Admin: 11/04/23 19:30 Dose: 40 mg Hydroxyzine HCl (Hydroxyzine Hcl 25 Mg Tablet) 25 mg PO Q6H PRN PRN Reason: anxiety/restlessness Magnesium Hydroxide (Milk Of Magnesia 30 Ml Oral.Susp) 30 ml PO DAILY PRN PRN Reason: Constipation Melatonin (Melatonin 3 Mg Tablet) 6 mg PO BEDTIME PRN PRN Reason: Insomnia Methadone HCl (Methadone Hcl 20 Mg/2 Ml Oral.Conc) 5 mg PO Q3H PRN PRN Reason: Opiate Withdrawal Metoprolol Tartrate (Metoprolol Tartrate 12.5 Mg Halftab) 12.5 mg PO BID [facility]; Protocol Ondansetron HCl (Ondansetron Hcl 4 Mg/2 Ml Vial) 4 mg IVPUSH Q8H PRN PRN Reason: Nausea and Vomiting Last Admin: 11/05/23 07:32 Dose: 4 mg Sodium Chloride (0.9 % Sodium Chloride Flush 3 Ml Syringe) 3 ml IVFLUSH QSHIFT [facility] Last Admin: 11/05/23 07:59 Dose: Not Given Temazepam (Temazepam 15 Mg Capsule) 15 mg PO BEDTIME PRN PRN Reason: Insomnia Home Medications ?Medication ?Instructions ?Recorded ?Confirmed ?Last Taken ?Type No Known Home Meds 11/04/23 11/04/23 Unknown History Physical Exam 2 Vital Signs: Vital Signs: Last Vital Signs Temp 98.3 F 11/05/23 12:00 Pulse 69 11/05/23 12:00 Resp 20 11/05/23 12:00 BP 133/65 11/05/23 12:00 Pulse Ox 97 11/05/23 12:00 O2 Del Method Room Air 11/05/23 12:00 BMI result Body Mass Index 37.3 Const: General: cooperative, comfortable, no acute distress, alert and awake Nutritional Appearance: obese Orientation/consciousness: patient oriented x3 Limitations: no limitations HEENT: Head: Yes normocephalic and Yes atraumatic Neck: Neck: Yes trachea midline, Yes supple and Yes no JVD Resp: Effort & Inspection: normal respiratory effort Auscultation: clear to auscultation bilaterally Cardio: Jugular venous distension: no JVD Palpation: normal PMI Rate: r egular rate Rhythm: regular rhythm Heart sounds: S1 normal heart sound present, S2 normal heart sound present, no click, no gallops, no murmurs and no rubs GI: Auscultation: normal bowel sounds Skin: General skin exam: no rashes or lesions noted Neuro: General: patient oriented x3 and no focal motor deficits Extrem: General: Yes no clubbing, cyanosis or edema Objective Labs and Meds 11/04/23 16:44 11/05/23 10:30 Lab results: Laboratory Results - last 24 hr 11/04/23 11/04/23 11/04/23 15:34 16:43 16:44 WBC 7.6 RBC 5.10 Hgb 14.2 Hct 42.5 MCV 83.3 MCH 27.8 MCHC 33.4 RDW 13.7 Plt Count 193 MPV 10.7 Immature Gran % (Auto) 0.4 Neut % (Auto) 77.6 H Lymph % (Auto) 15.1 L [place] % (Auto) 5.7 Eos % (Auto) 0.5 Baso % (Auto) 0.7 Lymph # (Auto) 1.1 L [place] # (Auto) 0.4 Eos # (Auto) 0.0 Baso # (Auto) 0.1 Abs Immat Gran (auto) 0.03 Absolute Neuts (auto) 5.9 Absolute Nucleated RBC 0.000 Nucleated RBC % (auto) 0.0 PT 12.3 INR 1.0 D-Dimer High Sensitivty < 150 Sodium 144 Potassium 4.5 Chloride 106 Carbon Dioxide 30 H Anion Gap 13 BUN 10 Creatinine 0.97 Estim Creat Clear Calc 143.6 Estimated GFR > 60 Random Glucose 114 Lactic Acid Calcium 10.0 Total Bilirubin 0.4 Direct Bilirubin 0.2 AST 38 H ALT 55 H Alkaline Phosphatase 74 Troponin I High Sens 3.4 B-Natriuretic Peptide < 10 Total Protein 7.8 Albumin 4.2 TSH 0.64 Urine Color Urine Appearance Urine pH Ur Specific [place] Urine Protein Urine Glucose (UA) Urine Ketones Urine Blood Urine Nitrite Ur Leukocyte Esterase Urine RBC Urine WBC Ur Squamous Epith Cells Urine Bacteria Hyaline Casts Urine Opiates Screen POSITIVE H Ur Buprenorphine Scrn Not Detected Ur Oxycodone Screen Not Detected Urine Methadone Screen Not Detected Urine Fentanyl Screen POSITIVE H Ur Barbiturates Screen Not Detected Ur Phencyclidine Scrn Not Detected Ur Amphetamines Screen Not Detected U Benzodiazepines Scrn Not Detected Urine Cocaine Screen Not Detected U Marijuana (THC) Screen Not Detected Influenza Type A (PCR) NEGATIVE Influenza Type B (PCR) NEGATIVE RSV RNA Qual (PCR) NEGATIVE SARS-CoV-2 RNA (RT-PCR) NEGATIVE 11/04/23 11/04/23 11/05/23 19:01 23:00 10:30 WBC RBC Hgb Hct MCV MCH MCHC RDW Plt Count MPV Immature Gran % (Auto) Neut % (Auto) Lymph % (Auto) [place] % (Auto) Eos % (Auto) Baso % (Auto) Lymph # (Auto) [place] # (Auto) Eos # (Auto) Baso # (Auto) Abs Immat Gran (auto) Absolute Neuts (auto) Absolute Nucleated RBC Nucleated RBC % (auto) PT INR D-Dimer High Sensitivty Sodium Potassium Chloride Carbon Dioxide Anion Gap BUN Creatinine 0.94 Estim Creat Clear Calc 148.1 Estimated GFR > 60 Random Glucose Lactic Acid 1.4 Calcium Total Bilirubin Direct Bilirubin AST ALT Alkaline Phosphatase Troponin I High Sens B-Natriuretic Peptide Total Protein Albumin TSH Urine Color Yellow Urine Appearance Clear Urine pH 6.5 Ur Specific [place] 1.025 Urine Protein Trace Urine Glucose (UA) Negative Urine Ketones Trace Urine Blood Negative Urine Nitrite Negative Ur Leukocyte Esterase Trace H Urine RBC 0-2 Urine WBC 0-5 Ur Squamous Epith Cells 3-5 Urine Bacteria None Seen Hyaline Casts 0-2 Urine Opiates Screen Ur Buprenorphine Scrn Ur Oxycodone Screen Urine Methadone Screen Urine Fentanyl Screen Ur Barbiturates Screen Ur Phencyclidine Scrn Ur Amphetamines Screen U Benzodiazepines Scrn Urine Cocaine Screen U Marijuana (THC) Screen Influenza Type A (PCR) Influenza Type B (PCR) RSV RNA Qual (PCR) SARS-CoV-2 RNA (RT-PCR) Imaging Radiologist's impression: Impressions Chest X-Ray 11/04/23 14:10 IMPRESSION: No acute pulmonary disease compared to 04/14/2023. Assessment and Plan (1) Paroxysmal atrial fibrillation: Status: Acute Symptomatic paroxysmal atrial fibrillation this young man with risk factors of obesity and sleep apnea. Need to target treatment of sleep apnea aggressively. This was discussed with patient and patient's significant other. Us in the manager long term care reducing significant on weight should help prevent recurrence of atrial fibrillation. For now is willing to try metoprolol at a low dose for treatment given his prior side effect to other beta-blockers. Will start on metoprolol 12.5 mg b.i.d.. This is 1st episode of atrial fibrillation. Echocardiogram does not show any significant left atrial enlargement although this is a limited echocardiogram. I strongly dissipated him from using IV drug abuse. Also using any form of stimulants was discussed with him. Given his low risk, no indication for oral anticoagulation therapy. Follow-up with his primary market research associate and may require long-term monitoring. If he has recurrent atrial fibrillation may benefit from alternative therapy and/or antiarrhythmic drug therapy. Also considering ablation given his age is a possibility. Will sign of the case. Procedures Date of Service Date of Service: 11/05/23
--- NOTE | 2023-11-05 14:45 | PM.DS ---
DS: Providers Provider Date of Service: 11/05/23 Date of admission: 11/04/23 18:38 Primary care physician: Unknown Physician Consults: 11/04/23 18:42 Consult to General Surgery Routine Consulting Provider: [facility] General Surgeons Reason for consultation: broken needle rt forearm Has provider been notified: No 11/05/23 07:33 Addiction Medicine Routine Consulting Provider: Addiction Covering Reason for consultation: opiate use disorder Has provider been notified: No 11/05/23 10:57 Consult to Cardiology Routine Consulting Provider: [facility] Cardiovascular Specialists Reason for consultation: atfib Has provider been notified: No DS: Diagnosis Discharge Diagnosis (1) Foreign body in right forearm: Status: Acute (2) New onset a-fib: Status: Acute DS: Summary Hospital Course Hospital Course: Date of Service: 11/04/23 Chief Complaint: Palpitations 38-year-old gentleman with past medical history significant for hypertension, vertigo and insomnia presented to [facility] with 3-4 days' history of palpitations associated with lightheadedness, chills feeling cold and hot, no fevers and worsening insomnia of 3-4 days' duration, having strange dreams, also complaining of right forearm pain since October 31, patient was recently evaluated at [facility] on November 01 for follow-up on broken needle in right forearm, according to patient history he was injecting self for cyclic vomiting syndrome and needle broke off x-ray showed tip of broken needle within the medial proximal soft tissue of the forearm, point of care ultrasound of the area showed needle at depth of 1-2 cm given the depth it was decided to refer patient to general surgery for possible fluoroscopic guided removal, patient was scheduled for procedure today at [facility] but due to palpitations came to [facility], here 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 while using material in a syringe to fill in crack he slid on floor and knocked down the needle and acquired puncture wound, in ED noted to be in new onset atrial fibrillation with rapid ventricular rate of 121 patient treated with IV Lopressor 5 mg, IV ceftriaxone for possible infection, question endocarditis and Ativan 0.5 mg, ventricular rate improved patient remains in atrial fibrillation, he denies history of alcohol use, denies family history of atrial fibrillation, TSH 0.64, troponin 3.4, BNP of 10, chest x-ray unremarkable urine toxicology positive for fentanyl and opiates, he admits of taking oxycodone and IV heroin last use 4 days ago, denies withdrawal symptoms. Hospital course 38-year-old gentleman with history of opiate use disorder, history of hypertension, vertigo history of COVID 2 years ago post COVID noted to have hypertension and weakness currently unemployed presented to [facility] due to symptoms of palpitations and diagnosed to have AFib with RVR , treated in the emergency room with IV Lopressor 5 mg, ventricular rate improved, admitted to intermediate care unit with a diagnosis of new onset atrial fibrillation with RVR placed on metoprolol 25 mg b.i.d. TSH normal, echocardiogram obtained, that was a technically limited study due to body habitus, EF 60-65% with normal diastolic filling pattern, right ventricle and valves were not visualized, patient seen by sales support advisor Dr. Carson he recommend to treat patient with Lopressor 12.5 mg b.i.d. no oral anticoagulation therapy was recommended given low risk, he is recommended outpatient follow-up with his primary sales support advisor to consider antiarrhythmic drug therapy if noted to have recurrent atrial fibrillation and also to consider ablation given his age. Patient converted to normal sinus rhythm. patient also noted to have broken needle ,right forearm seen by Dr. Bob he recommend follow-up by General surgery at [facility] where patient was previously seen , no surrounding cellulitis noted, blood cultures x2 are pending. In regard to Opiate use disorder patient was evaluated by Addiction Team, he was recommended follow-up outpatient for methadone. History of panic attack recommend to continue Xanax. Time Attestation Discharge Coordination Time (in mins): 38 Quality: Safe Use of Opioids Does Pt have an Active Cancer Diagnosis on the Problem List?: No Quality: Stroke Does the patient have a stroke diagnosis?: No Physical Exam Vital Signs: Vital Signs: Last Vital Signs Temp 98.3 F 11/05/23 12:00 Pulse 69 11/05/23 12:00 Resp 20 11/05/23 12:00 BP 133/65 11/05/23 12:00 Pulse Ox 97 11/05/23 12:00 O2 Del Method Room Air 11/05/23 12:00 BMI result Body Mass Index 37.3 Const: Other: General awake alert x3, resting comfortably in no acute distress. Neck supple no JVD. CVS irregular rate rhythm, Respiratory lungs clear to auscultation, no respiratory distress, no wheeze, no rhonchi. Gastrointestinal abdomen soft, non tender, bowel sounds audible, no guarding , no rigidity. Extremities no edema. Neuro non focal , moving all 4 extremity speech clear. Skin right mid forearm tenderness at site of foreign body , no surrounding redness, no induration, no drainage no open wounds Psych appropriate affect DS: Data Data Completed and Pending Labs on day of discharge: Laboratory Results - last 24 hr 11/04/23 11/04/23 11/04/23 15:34 16:43 16:44 WBC 7.6 RBC 5.10 Hgb 14.2 Hct 42.5 MCV 83.3 MCH 27.8 MCHC 33.4 RDW 13.7 Plt Count 193 MPV 10.7 Immature Gran % (Auto) 0.4 Neut % (Auto) 77.6 H Lymph % (Auto) 15.1 L [place] % (Auto) 5.7 Eos % (Auto) 0.5 Baso % (Auto) 0.7 Lymph # (Auto) 1.1 L [place] # (Auto) 0.4 Eos # (Auto) 0.0 Baso # (Auto) 0.1 Abs Immat Gran (auto) 0.03 Absolute Neuts (auto) 5.9 Absolute Nucleated RBC 0.000 Nucleated RBC % (auto) 0.0 PT 12.3 INR 1.0 D-Dimer High Sensitivty < 150 Sodium 144 Potassium 4.5 Chloride 106 Carbon Dioxide 30 H Anion Gap 13 BUN 10 Creatinine 0.97 Estim Creat Clear Calc 143.6 Estimated GFR > 60 Random Glucose 114 Lactic Acid Calcium 10.0 Total Bilirubin 0.4 Direct Bilirubin 0.2 AST 38 H ALT 55 H Alkaline Phosphatase 74 Troponin I High Sens 3.4 B-Natriuretic Peptide < 10 Total Protein 7.8 Albumin 4.2 TSH 0.64 Urine Color Urine Appearance Urine pH Ur Specific [place] Urine Protein Urine Glucose (UA) Urine Ketones Urine Blood Urine Nitrite Ur Leukocyte Esterase Urine RBC Urine WBC Ur Squamous Epith Cells Urine Bacteria Hyaline Casts Urine Opiates Screen POSITIVE H Ur Buprenorphine Scrn Not Detected Ur Oxycodone Screen Not Detected Urine Methadone Screen Not Detected Urine Fentanyl Screen POSITIVE H Ur Barbiturates Screen Not Detected Ur Phencyclidine Scrn Not Detected Ur Amphetamines Screen Not Detected U Benzodiazepines Scrn Not Detected Urine Cocaine Screen Not Detected U Marijuana (THC) Screen Not Detected Influenza Type A (PCR) NEGATIVE Influenza Type B (PCR) NEGATIVE RSV RNA Qual (PCR) NEGATIVE SARS-CoV-2 RNA (RT-PCR) NEGATIVE 11/04/23 11/04/23 11/05/23 19:01 23:00 10:30 WBC RBC Hgb Hct MCV MCH MCHC RDW Plt Count MPV Immature Gran % (Auto) Neut % (Auto) Lymph % (Auto) [place] % (Auto) Eos % (Auto) Baso % (Auto) Lymph # (Auto) [place] # (Auto) Eos # (Auto) Baso # (Auto) Abs Immat Gran (auto) Absolute Neuts (auto) Absolute Nucleated RBC Nucleated RBC % (auto) PT INR D-Dimer High Sensitivty Sodium Potassium Chloride Carbon Dioxide Anion Gap BUN Creatinine 0.94 Estim Creat Clear Calc 148.1 Estimated GFR > 60 Random Glucose Lactic Acid 1.4 Calcium Total Bilirubin Direct Bilirubin AST ALT Alkaline Phosphatase Troponin I High Sens B-Natriuretic Peptide Total Protein Albumin TSH Urine Color Yellow Urine Appearance Clear Urine pH 6.5 Ur Specific [place] 1.025 Urine Protein Trace Urine Glucose (UA) Negative Urine Ketones Trace Urine Blood Negative Urine Nitrite Negative Ur Leukocyte Esterase Trace H Urine RBC 0-2 Urine WBC 0-5 Ur Squamous Epith Cells 3-5 Urine Bacteria None Seen Hyaline Casts 0-2 Urine Opiates Screen Ur Buprenorphine Scrn Ur Oxycodone Screen Urine Methadone Screen Urine Fentanyl Screen Ur Barbiturates Screen Ur Phencyclidine Scrn Ur Amphetamines Screen U Benzodiazepines Scrn Urine Cocaine Screen U Marijuana (THC) Screen Influenza Type A (PCR) Influenza Type B (PCR) RSV RNA Qual (PCR) SARS-CoV-2 RNA (RT-PCR) Discharge Plan Discharge Anticipated Discharge Date/Time: 11/05/23 14:30 Patient Disposition: Home, Self-Care Discharge Diagnosis: New onset atrial fibrillation with RVR Referrals: Physician,Unknown J [Primary Care Provider] - 1 Week Discharge Medications: New metoprolol tartrate 25 mg tablet 12.5 mg PO BID Qty: 60 0RF Discharge Orders: Discharge Order (Routine); Ordered 11/05/23 Ordered By: Verenice Evangelista Diet: Advance to usual diet Activity on Discharge: As tolerated Stand Alone Forms: Patient Portal Discharge page Print Language: Thai Care Plan Goals: Atrial fibrillation with rapid ventricular response resolved now in normal sinus rhythm take metoprolol 12.5 mg 1/2 tablet twice daily Follow-up with [facility] General surgery for removal of needle from right forearm Returned to check with episodes of fever/chills/ lightheadedness/ dizziness Health Concerns: Panic attacks/palpitations Plan of Treatment: Outpatient follow-up with primary care physician, primary sales support advisor and General surgery at [facility] call for appointment Assessment: As above Discharge Date/Time: 11/05/23 15:04
--- NOTE | 2023-11-05 15:56 | MHC.CM.PN ---
Pt is medically cleared for discharge home self-care, pts will transport him home.
== END 2023-11-05 15:04 | disposition home or self-care (01) | DRG 310 ==
LOC: HO.ED 18:16 → HO.EDOVER 18:44 → HO.IMC 19:49
PROVIDERS: Physician Assistant; Admitting Provider Hospitalist; Emergency Provider Student in an Organized Health Care Education/Training Program; Visit Provider Hospitalist
DX: I48.0 Paroxysmal atrial fibrillation (principal); G47.30 Sleep apnea, unspecified; M79.5 Residual foreign body in soft tissue; I10 Essential (primary) hypertension; F11.90 Opioid use, unspecified, uncomplicated; E66.8 Other obesity; Z68.37 Body mass index [BMI] 37.0-37.9, adult; F41.0 Panic disorder [episodic paroxysmal anxiety]; Z03.818 Encounter for observation for suspected exposure to other biological agents ruled out
CPT/HCPCS: 0241U; 36415; 71045; 80048; 80076; 80307; 81001; 82565; 83605; 83880; 84443; 84484; 85025; 85379; 85610; 87040; 93005; 93306; 96365; 96366; 96367; 96372; 96375; 96376; 99285; J0696; J1200; J1650; J2060; J2405; J3370; Q9957

== ENCOUNTER → 2023-11-04 13:24 | Outpatient (BNV) | payer MEDICARE, MEDICAID, SELFPAY | PROVIDERS: Admitting Provider Hospitalist; Emergency Provider Student in an Organized Health Care Education/Training Program; Visit Provider Internal Medicine Cardiovascular Disease | DX: R94.31 Abnormal electrocardiogram [ECG] [EKG] (principal) | CPT/HCPCS: 93010 ==

== ENCOUNTER 2023-11-04 18:38 | Outpatient (BNV) | payer MEDICARE, MEDICAID, SELFPAY | END 2023-11-05 07:00 | PROVIDERS: Admitting Provider Hospitalist; Emergency Provider Student in an Organized Health Care Education/Training Program; Visit Provider Internal Medicine Cardiovascular Disease | DX: I48.91 Unspecified atrial fibrillation (principal) | CPT/HCPCS: 93306 ==

== ENCOUNTER → 2023-11-04 18:38 | Outpatient (BNV) | payer MEDICARE, MEDICAID, SELFPAY | PROVIDERS: Admitting Provider Hospitalist; Emergency Provider Student in an Organized Health Care Education/Training Program; Visit Provider Internal Medicine Cardiovascular Disease | DX: I48.0 Paroxysmal atrial fibrillation (principal) | CPT/HCPCS: 99222 ==

== ENCOUNTER → 2023-11-04 18:38 | Outpatient (BNV) | payer MEDICARE, MEDICAID, SELFPAY | PROVIDERS: Admitting Provider Hospitalist; Emergency Provider Student in an Organized Health Care Education/Training Program; Visit Provider Hospitalist | DX: S50.851A Superficial foreign body of right forearm, initial encounter (principal); I48.91 Unspecified atrial fibrillation | CPT/HCPCS: 99223; 99239 ==

== ENCOUNTER → 2023-11-04 18:38 | Outpatient (BNV) | payer MEDICARE, MEDICAID, SELFPAY | PROVIDERS: Admitting Provider Hospitalist; Emergency Provider Student in an Organized Health Care Education/Training Program; Visit Provider Physician Assistant Surgical | DX: S50.851A Superficial foreign body of right forearm, initial encounter (principal); I48.91 Unspecified atrial fibrillation | CPT/HCPCS: 99222 ==

== ENCOUNTER 2023-11-12 04:56 | Emergency (ER) | payer MEDICARE, MEDICAID, SELFPAY ==
--- NOTE | 2023-11-12 | ECG_ITS ---
Test Reason : PALPITATIONS Blood Pressure : / mmHG Vent. Rate : 089 BPM Atrial Rate : 089 BPM P-R Int : 166 ms QRS Dur : 096 ms QT Int : 356 ms P-R-T Axes : 062 -09 028 degrees QTc Int : 433 ms Normal sinus rhythm Normal ECG When compared with ECG of 04-NOV-2023 17:14, Sinus rhythm has replaced Atrial fibrillation Referred By: Generic ED Physician Electronically Signed By:NORMAN GARCIA
[2023-11-12 05:08] VITALS: BP 160/94; PULSE 99; RESP 18; TEMP 36.6; O2SAT 100; BMI 37.3
--- NOTE | 2023-11-12 05:24 | PC.NURSE ---
pt from home, a&ox4, respirations even and unlabored, reports being seen here and admitted for rapid afib. pt reporting now, chest pain, shortness of breath, nausea, chills. pt reports he can not change into gown at this time due to trauma. pt normal sinus on tele 90-92bpm. pt reports being hard stick, aware.
--- NOTE | 2023-11-12 05:37 | ED_ITS ---
HPI - Arrhythmia/Palpitations General Chief Complaint: Arrhythmia/Palpitations Stated Complaint: palpitations, bloody nose Time Seen by Provider: 11/12/23 05:20 Source: patient Mode of arrival: ambulatory Limitations: no limitations History of Present Illness ED Provider: coty DAVIS narrative: Patient's history of paroxysmal atrial fibrillation diagnose in 11/05/2023 does have history of palpitation for long time but was not diagnose before comes here for similar episode started earlier today took 6.25 mg of metoprolol bright arrival on arrival patient is in sinus rhythm heart rate less than 100 patient also complaining of off and on right nostril bleed history of cauterization in the past patient feel anxious also took his Xanax complaining of chest pain shortness a breath chills Related Data Previous Rx's ?Medication ?Instructions ?Recorded metoprolol tartrate 25 mg tablet 12.5 mg (1/2 x 25 mg) PO BID #60 11/05/23 tabs Allergies Allergy/AdvReac Type Severity Reaction Status Date / Time haloperidol [From Haldol] Allergy Unknown Verified 11/12/23 05:13 Review of Systems Review of Systems: Yes all other systems are reviewed and are negative [facility] Social History Social History Household Members: Spouse Housing: House Do you presently have visiting nurse or other home services: No Patient Tobacco Use Status: Never used Tobacco Smoked in Last 30 Days: No e-Cigarette/Vaping Use: Never Used Second Hand Smoke Exposure: No Use of substances other than those prescribed or required for medical reasons: No Substance Use Type: Opiates Advance Directives: Yes Advance Directives on File: Yes Advance Directives Date on File: 11/08/23 Do you have a plan to hurt others: No Plan service: No Physical Exam Vital Signs: Vital Signs: Last Vital Signs Temp 97.9 F 11/12/23 07:05 Pulse 80 11/12/23 07:05 Resp 18 11/12/23 07:05 BP 134/86 11/12/23 07:05 Pulse Ox 100 11/12/23 07:05 O2 Del Method Room Air 11/12/23 07:05 BMI result Body Mass Index 37.3 Appearance: Alert. Oriented X3. No acute distress. Eyes: PERRLA, No Nystagmus ENT: Pharynx normal. Oral Mucosa moist Neck: Normal inspection. Neck supple. CVS: Normal heart rate and rhythm. Pulses normal. Respiratory: No respiratory distress. Equal air entry bilateral, no wheezing/rales/rhonchi Abdomen: Soft and nontender. Bowel sounds are present, no mass palpable, no CVA tenderness Skin: Skin warm and dry. Normal skin color. Normal skin turgor. Extremities: No lower extremity edema. No calf tenderness Neuro: Oriented X 3. No motor deficit. No sensory deficit.No cerebellar signs , cranial nerves II-XII intact Medical Decision Making Medical Decision Making [facility] Narrative: Patient has paroxysmal AFib lone fibrillation had detailed workup done including echo and lab workup last week during stay in the ED patient has stayed in sinus rhythm advised to follow with underwriting assistant possible to place him on Cardizem Differential Diagnosis Differential Diagnoses: The differential diagnosis associated with the presentation includes Atrial fibrillation/atrial flutter/anxiety/SVT Lab Data [facility] Lab Attestation statement: I reviewed the patient's lab results. Labs: Lab Results 11/12/23 Range/Units 05:17 Influenza Type A (PCR) NEGATIVE (Negative) Influenza Type B (PCR) NEGATIVE (Negative) RSV RNA Qual (PCR) NEGATIVE (Negative) SARS-CoV-2 RNA (RT-PCR) NEGATIVE (Negative) Independent Interpretation I performed an independent interpretation of an: EKG Interpretation: Normal sinus rhythm heart rate 89 beats per minute normal interval normal axis no acute ST-T changes no acute ischemia Discharge Plan Discharge Clinical Impression: Paroxysmal atrial fibrillation Patient Disposition: Home, Self-Care Instructions: A-fib (Atrial Fibrillation) (ED) Additional Instructions: Take your medications and follow up with your underwriting assistant Drink plenty of fluids Prescriptions: No Action metoprolol tartrate 25 mg tablet 12.5 mg PO BID Qty: 60 0RF Interventions: ED Discharge Assessment Last Done: 11/12/23 07:05 Discharge Date/Time: 11/12/23 07:06 Print Language: Yi
[2023-11-12 05:59] LABS: Influenza A PCR NEGATIVE (Negative); Influenza B PCR NEGATIVE (Negative); Resp Syncy Virus RNA Qual PCR NEGATIVE (Negative); SARS COV2 PCR INHOUSE NEGATIVE (Negative)
[2023-11-12 06:16] VITALS: BP 134/75; PULSE 76
[2023-11-12 06:17] VITALS: BP 134/86; BP 142/83; PULSE 80; PULSE 82
[2023-11-12 07:05] VITALS: BP 134/86; PULSE 80; RESP 18; TEMP 36.6; O2SAT 100
== END 2023-11-12 07:06 | disposition home or self-care (01) ==
PROVIDERS: Emergency Provider Internal Medicine
DX: I48.0 Paroxysmal atrial fibrillation (principal); R00.2 Palpitations; R06.02 Shortness of breath; Z03.818 Encounter for observation for suspected exposure to other biological agents ruled out
CPT/HCPCS: 0241U; 93005; 99284; 99285

== ENCOUNTER → 2023-11-12 05:10 | Outpatient (BNV) | payer MEDICARE, MEDICAID, SELFPAY | PROVIDERS: Emergency Provider Internal Medicine; Visit Provider Internal Medicine | DX: R00.2 Palpitations (principal) | CPT/HCPCS: 93010 ==

== ENCOUNTER 2023-12-17 00:18 | Emergency (ER) | payer MEDICARE, MEDICAID, SELFPAY ==
--- NOTE | 2023-12-17 | ECG_ITS ---
Test Reason : chest pain Blood Pressure : / mmHG Vent. Rate : 121 BPM Atrial Rate : 121 BPM P-R Int : 170 ms QRS Dur : 084 ms QT Int : 292 ms P-R-T Axes : 038 007 023 degrees QTc Int : 414 ms Sinus tachycardia Otherwise normal ECG When compared with ECG of 12-NOV-2023 05:10, Heart rate has increased Referred By: Generic ED Physician Electronically Signed By:CARMEN OLIVA
[2023-12-17 00:41] VITALS: BP 150/93; PULSE 132; RESP 20; TEMP 37.7; O2SAT 98; BMI 27.7
[2023-12-17 01:36] LABS: Influenza A PCR NEGATIVE (Negative); Influenza B PCR NEGATIVE (Negative); Resp Syncy Virus RNA Qual PCR NEGATIVE (Negative); SARS COV2 PCR INHOUSE NEGATIVE (Negative)
== END 2023-12-17 02:34 | disposition left against medical advice (07) ==
PROVIDERS: Emergency Provider Emergency Medicine
DX: M54.50 Low back pain, unspecified (principal); R07.9 Chest pain, unspecified; R00.0 Tachycardia, unspecified; Z03.818 Encounter for observation for suspected exposure to other biological agents ruled out; I48.91 Unspecified atrial fibrillation; Z53.21 Procedure and treatment not carried out due to patient leaving prior to being seen by health care provider
CPT/HCPCS: 0241U; 93005; 99281; 99283